=== PATIENT | female | born 1990 | race Caucasian/White ===

== ENCOUNTER 2022-06-18 05:37 | Emergency (ER) | payer BC ==
[~2022-06-18] VITALS: Ht 185.4 cm; Wt 68.0 kg
[2022-06-18 06:13] VITALS: BP 127/77
--- NOTE | 2022-06-18 07:47 | NUR ---
31 YO FEMALE BIBS C/O CHEST PAIN STARTING YESTERDAY. PATIENT STATES NO CP, STATES JUST AN UNCOMFORTABLE FEELING. NO MEDICAL HISTORY, NO ALLERGIES
[2022-06-18] MEDS ORDERED: ALUMINUM HYD/MAG/SIMETHICONE 30 ML UDC PO ONE (07:50)
[2022-06-18] MEDS ORDERED: FAMOTIDINE 20 MG TAB PO ONE (07:50)
--- NOTE | 2022-06-18 08:06 | NUR ---
Patient discharged with v/s stable. Written and verbal after care instructions given and explained. Patient verbalized understanding. Ambulatory with steady gait. All questions addressed prior to discharge. Advised to follow up with PMD.
== END 2022-06-18 08:05 | disposition home or self-care (01) ==
LOC: MED 05:37
DX: R07.9 Chest pain, unspecified (principal)
CPT/HCPCS: 93005; 99283